=== PATIENT | female | born 1995 | race Caucasian/White ===

== ENCOUNTER 2017-03-10 13:09 | Observation (INO) | payer MEDICAID ==
[~2017-03-10] VITALS: Ht 152.4 cm; Wt 65.4 kg
[2017-03-10] MEDS ORDERED: TYLENOL W/COD1 UDTAB PO (13:47)
[2017-03-10 13:57] VITALS: BP 102/63; PULSE 67; TEMP 98.3
[2017-03-10 18:29] VITALS: BP 92/52; PULSE 59; TEMP 98.5
[2017-03-10 19:24] VITALS: BP 93/55; PULSE 67; TEMP 98.2
[2017-03-10 19:44] VITALS: BP 93/55; PULSE 67; TEMP 98.2
[2017-03-10 23:31] VITALS: BP 95/58; PULSE 70; TEMP 97.4
[2017-03-11] VITALS (16 sets, daily range): BP systolic 93–110; BP diastolic 52–86; PULSE 68–90; TEMP 97.5–98
[2017-03-11 07:14] LABS: BASO % 0.4 % (0.0-2.0); EOS # 0.1 (0.0-0.7); EOS % 1.7 % (0-4.0); GRAN # 2.3 (1.4-6.5); GRAN % 48.5 % (42.2-75.2); HEMOGLOBIN 13.2 g/dl (12.5-16.0); LYMPH # 2.1 (1.2-3.4); LYMPH % 43.3 % (20.0-51.0); MEAN CELL VOLUME 95 fl (80.0-100.0); MEAN CORPUSCULAR HEMOGLOBIN 32 pg (27.0-31.0); MEAN CORPUSCULAR HGB CONC 34 g/dl (33.0-37.0); MEAN PLATELET VOLUME 10.4 fl (7.4-10.4); MONO # 0.3 (0.1-0.6); MONO % 5.9 % (1.7-9.3); PLATELET COUNT 243 K/mm3 (130-400); RED BLOOD COUNT 4.09 M/mm3 (4.10-5.30); REDCELL DISTRIBUTION WIDTH-CV 11.8 % (11.5-14.5); WHITE BLOOD COUNT 4.8 K/mm3 (4.8-10.8)
[2017-03-11 07:20] LABS: ADJUSTED CALCIUM 9.4 mg/dL (8.4-10.2); ALBUMIN 3.7 gm/dL (3.5-5.0); BILIRUBIN,TOTAL 2.1 mg/dL (0.0-1.0); CALCIUM 9.2 mg/dL (8.4-10.2); CREATININE, serum 0.69 mg/dL (0.52-1.25); POTASSIUM 3.9 mmol/L (3.4-5.0); TOTAL PROTEIN 6.4 gm/dL (6.4-8.2)
[2017-03-11] MEDS ORDERED: PERCOCET 325 MG1 TA2 PO (13:53)
[2017-03-11] MEDS ORDERED: COLACE 100100 MG/CAP PO (13:54)
[2017-03-11] MEDS ORDERED: MOTRIN 600600 MG/TAB PO (13:54)
== END 2017-03-11 18:30 | disposition home or self-care (01) ==
LOC: SDCO 13:09 → SURG 16:15
PROVIDERS: Surgery
DX: K80.10 Calculus of gallbladder with chronic cholecystitis without obstruction (principal); K80.50 Calculus of bile duct without cholangitis or cholecystitis without obstruction
CPT/HCPCS: A9284; C1769; G0378; G0379; J0690; J1100; J1170; J1885; J2250; J2405; J2704; J2710; J3010; J7120; Q9967